=== PATIENT | male | born 1990 | race Two or more races ===

== ENCOUNTER 2019-08-25 23:51 | Emergency (ER) | payer SELFPAY ==
[~2019-08-25] VITALS: Ht 175.3 cm; Wt 128.8 kg
[2019-08-26 00:07] VITALS: BP 135/86
== END 2019-08-26 01:00 | disposition left against medical advice (07) ==
LOC: ER 23:57
DX: R10.9 Unspecified abdominal pain (principal); Z53.21 Procedure and treatment not carried out due to patient leaving prior to being seen by health care provider